=== PATIENT | female | born 1960 | race Caucasian/White ===

== ENCOUNTER 2017-04-04 07:39 | Outpatient (CLI) | payer OTHER | END 2017-04-04 07:40 | disposition home or self-care (01) | LOC: BICMAMMO 07:39 | PROVIDERS: ATTEND Specialist | DX: Z12.31 Encounter for screening mammogram for malignant neoplasm of breast (principal); Z13.820 Encounter for screening for osteoporosis | CPT/HCPCS: 77067; 77080; G0202 ==

== ENCOUNTER 2018-04-08 09:38 | Outpatient (CLI) | payer OTHER | END 2018-04-08 09:39 | disposition home or self-care (01) | LOC: BICMAMMO 09:38 | PROVIDERS: ATTEND Specialist | DX: Z12.31 Encounter for screening mammogram for malignant neoplasm of breast (principal); Z80.3 Family history of malignant neoplasm of breast | CPT/HCPCS: 77063; 77067 ==

== ENCOUNTER 2018-08-01 08:56 | Outpatient (CLI) | payer OTHER ==
--- NOTE | 2018-08-01 09:51 | ULT ---
RIGHT UPPER QUADRANT ULTRASOUND: Date: 08/01/18 HISTORY: Abdominal pain. FINDINGS: There is some minimal diffuse increased liver echogenicity, possibly representing some fatty change. The gallbladder is borderline distended with numerous echogenic foci within the gallbladder, casting prominent shadows, as well as some gallbladder wall thickening. Common bile duct 0.5 cm. The patient was tender over the gallbladder, but no discrete positive Churchill's sign. Visualized pancreas and righ t kidney are unremarkable. IMPRESSION: Multiple cholelithiasis within a mildly distended gallbladder with gallbladder wall thickening and mi nimal gallbladder wall edematous changes. No common duct dilatation. Slight coarse liver echotexture. POS: OFF
== END 2018-08-01 08:57 | disposition home or self-care (01) ==
LOC: ULT 08:56
PROVIDERS: ATTEND Physician Assistant Medical
DX: R10.9 Unspecified abdominal pain (principal); R11.2 Nausea with vomiting, unspecified; K80.20 Calculus of gallbladder without cholecystitis without obstruction; K82.8 Other specified diseases of gallbladder
CPT/HCPCS: 76705

== ENCOUNTER 2018-08-06 16:11 | Outpatient (CLI) | payer OTHER ==
[2018-08-06 17:05] LABS: #Basophils 0.1 thou/uL (0.0-0.2); #Eosinphils 0.2 thou/uL (0.0-0.7); #Lymphocytes 3.7 thou/uL (1.20-3.40); #Monocytes 0.7 thou/uL (0.11-0.59); #Neutrophils 4.8 thou/uL (1.40-6.50); %Basophils 0.9 % (0.0-1.0); %Eosinophils 2.3 % (0.0-10.0); %Lymphocytes 38.7 % (21.0-51.0); %Monocytes 6.9 % (0.0-10.0); %Neutrophils 51.2 % (42.0-75.0); Hemoglobin 13.8 g/dL (12.0-16.0); Mean Corpuscular HGB CONC 33.1 g/dL (32.0-36.0); Mean Corpuscular Hemoglobin 29.9 pg (27.0-31.0); Mean Corpuscular Volume 90.4 fL (78.0-98.0); Mean Platelet Volume 7.8 fL (7.4-10.4); Platelet Count 342 thou/uL (130-400); RBC Distribution Width 12.4 % (11.5-14.5); Red Blood Cell (RBC) Count 4.62 mill/uL (4.20-5.40); White Blood Cell (WBC) Count 9.4 thou/uL (4.8-10.8)
[2018-08-06 17:27] LABS: ALT (SGPT) 23 U/L (8-55); AST (SGOT) 16 U/L (5-34); Albumin 4.3 g/dL (3.5-5.0); Alkaline Phosphatase 79 U/L (40-150); Anion Gap 15 mmol/L (10-20); BUN (Urea Nitrogen) 19 mg/dL (9.8-20.1); Bilirubin, Direct 0.1 mg/dL (0.1-0.3); Bilirubin, Total 0.4 mg/dL (0.2-1.2); Calc. Creatinine Clearance 0 mL/min (70-130); Calcium 10.3 mg/dL (7.8-10.44); Carbon Dioxide 26 mmol/L (22-29); Chloride 104 mmol/L (98-107); Estimated GFR-MDRD 66; Glucose 123 mg/dL (70-105); Potassium 4.6 mmol/L (3.5-5.1); Protein, Total 7.5 g/dL (6.0-8.3); Sodium 140 mmol/L (136-145)
== END 2018-08-06 16:12 | disposition home or self-care (01) ==
LOC: LABBT 16:11
PROVIDERS: ATTEND Surgery
DX: Z01.812 Encounter for preprocedural laboratory examination (principal); K80.20 Calculus of gallbladder without cholecystitis without obstruction
CPT/HCPCS: 80048; 80076; 85025; 93005; 93010

== ENCOUNTER 2018-08-12 11:13 | Day surgery (SDC) | payer OTHER ==
[2018-08-06 17:01] VITALS: BMI 27.1
[2018-08-12] MEDS ORDERED: Glycopyrrolate 0.2 MG/ML 5 ML SYRINGE ONE (11:25)
[2018-08-12] MEDS ORDERED: PROPOFOL 200 MG/20 ML VIAL ONE (11:25)
[2018-08-12] MEDS ORDERED: Rocuronium Bromide 10 MG/ML (10ML VIAL) ONE (11:25)
[2018-08-12] MEDS ORDERED: Ondansetron PF 4 MG/2 ML Vial ONE (11:25)
[2018-08-12] MEDS ORDERED: Lidocaine 1% PF 5 ML VIAL ONE (11:25)
[2018-08-12] MEDS ORDERED: Bupivacaine/Epinephrine 0.25% 30 ML VIAL ONE (13:27)
[2018-08-12] MEDS ORDERED: Fentanyl 250 MCG/5 ML VIAL ONE (13:33)
[2018-08-12] MEDS ORDERED: Promethazine HCl 25 MG/ML VIAL ONE (14:40)
[2018-08-12] MEDS ORDERED: Fentanyl 100 MCG/2 ML VIAL ONE (15:43)
--- NOTE | 2018-08-12 17:26 | OP ---
DATE OF PROCEDURE: 08/12/2018 PREOPERATIVE DIAGNOSIS: Symptomatic gallstones. POSTOPERATIVE DIAGNOSIS: Symptomatic gallstones. PROCEDURE PERFORMED: Laparoscopic cholecystectomy. ANESTHESIA: General. COMPLICATIONS: None. SPECIMEN: Gallbladder. FINDINGS: Chronic cholecystitis. PROCEDURE IN DETAIL: The patient was taken to the operating room and laid supine on the operating room table. After general anesthetic was obtained, the abdomen was prepped and draped in a sterile fashion. A curved incision was made below the umbilicus. Cautery was used to dissect down to the umbilical fascia. Umbilical fascia was incised and held up using a Dali. The abdominal cavity was entered using a Mandy clamp. Holding stitch of Vicryl was placed on each side of the fascia. Holder trocar was placed. High-flow pneumoperitoneum was obtained. An upper midline 5 mm port and 2 right upper quadrant 5 mm ports were placed under direct camera visualization. The gallbladder was retracted from the gallbladder fossa. The peritoneum of the gallbladder was opened anteriorly and posteriorly. The critical view triangle was seen showing only the cystic duct and cystic artery branching from medial to lateral. There were no other branching structures. Two clips were placed proximally on the cystic duct and one laterally. It was cut using laparoscopic scissors. The cystic artery was taken in the same way. Electrocautery was then used to dissect the gallbladder out of the gallbladder fossa. The gallbladder was placed in an Endo catch bag and brought out through the Holder. There was no bleeding or bile in the liver bed. The cystic duct stump and cystic artery stump were intact, without evidence of extravasation or bleeding. All port sites were infiltrated using local anesthesia. All ports were removed under camera visualization. Pneumoperitoneum was let down. The Vicryl was used to close the fascial defect below the umbilicus. All incisions were irrigated and closed using 4-0 Monocryl and Dermabond. The patient was en route to Recovery in stable condition. All instrument counts, needle counts and lap counts were correct. Job ID: [id number]
== END 2018-08-12 16:50 | disposition home or self-care (01) ==
LOC: SDC 11:13
PROVIDERS: ATTEND Surgery
PROC: 0FT44ZZ Resection of Gallbladder, Percutaneous Endoscopic Approach (ICD-10-PCS; principal; 2018-08-12)
DX: K80.10 Calculus of gallbladder with chronic cholecystitis without obstruction (principal); Z79.84 Long term (current) use of oral hypoglycemic drugs; Z79.899 Other long term (current) drug therapy
CPT/HCPCS: 88304; J0690; J2001; J2405; J2550; J2704; J3010

== ENCOUNTER 2019-04-10 09:31 | Outpatient (CLI) | payer OTHER ==
--- NOTE | 2019-04-10 10:09 | MMO ---
Bilateral MAMMO Bilat Screen [facility]. CLINICAL HISTORY: Patient is 59 years old and is seen for screening. The patient has the following family history of breast cancer: maternal grandmother. The patient has no personal history of cancer. The patient has a history of right Excisional Biopsy - benign. VIEWS: The views performed were: bilateral craniocaudal with tomosynthesis and bilateral mediolateral oblique with tomosynthesis. FILMS COMPARED: The present examination has been compared to prior imaging studies performed at [facility] on 04/04/2017 and 04/08/2018, and at [facility] on 10/26/2014 and 11/25/2015. This study has been interpreted with the assistance of computer-aided detection. MAMMOGRAM FINDINGS: There are scattered fibroglandular densities. There are no suspicious masses, suspicious calcifications, or new areas of architectural distortion. IMPRESSION: THERE IS NO MAMMOGRAPHIC EVIDENCE OF MALIGNANCY. A ROUTINE FOLLOW-UP MAMMOGRAM IN 1 YEAR IS RECOMMENDED. THE RESULTS OF THIS EXAM WERE SENT TO THE PATIENT. ACR BI-RADS Category 1 - Negative MAMMOGRAPHY NOTE: 1. A negative mammogram report should not delay a biopsy if a dominant of clinically suspicious mass is present. 2. Approximately 10% to 15% of breast cancers are not detected by mammography. 3. Adenosis and dense breasts may obscure an underlying neoplasm. Reported by: JUSTIN BROWN MD Electonically Signed: [id number]
== END 2019-04-10 09:32 | disposition home or self-care (01) ==
LOC: BICMAMMO 09:31
PROVIDERS: ATTEND Specialist
DX: Z12.31 Encounter for screening mammogram for malignant neoplasm of breast (principal); Z80.3 Family history of malignant neoplasm of breast
CPT/HCPCS: 77063; 77067

== ENCOUNTER 2020-04-12 10:00 | Outpatient (CLI) | payer OTHER ==
--- NOTE | 2020-04-12 10:52 | MMO ---
Bilateral MAMMO Bilat Screen [facility]. CLINICAL HISTORY: Patient is 60 years old and is seen for screening. The patient has the following family history of breast cancer: maternal grandmother. The patient has no personal history of cancer. The patient has a history of right Excisional Biopsy - benign. VIEWS: The views performed were: bilateral craniocaudal with tomosynthesis and bilateral mediolateral oblique with tomosynthesis. FILMS COMPARED: The present examination has been compared to prior imaging studies performed at [facility] on 04/04/2017, 04/08/2018 and 04/10/2019, and at [facility] on 11/25/2015. This study has been interpreted with the assistance of computer-aided detection. MAMMOGRAM FINDINGS: There are scattered fibroglandular densities. There are no suspicious masses, suspicious calcifications, or new areas of architectural distortion. IMPRESSION: THERE IS NO MAMMOGRAPHIC EVIDENCE OF MALIGNANCY. A ROUTINE FOLLOW-UP MAMMOGRAM IN 1 YEAR IS RECOMMENDED. THE RESULTS OF THIS EXAM WERE SENT TO THE PATIENT. ACR BI-RADS Category 1 - Negative MAMMOGRAPHY NOTE: 1. A negative mammogram report should not delay a biopsy if a dominant of clinically suspicious mass is present. 2. Approximately 10% to 15% of breast cancers are not detected by mammography. 3. Adenosis and dense breasts may obscure an underlying neoplasm. Reported by: MIGDALIA PRITCHARD MD Electonically Signed: [id number]
== END 2020-04-12 10:01 | disposition home or self-care (01) ==
LOC: BICMAMMO 10:00
PROVIDERS: ATTEND Specialist
DX: Z12.31 Encounter for screening mammogram for malignant neoplasm of breast (principal); Z80.3 Family history of malignant neoplasm of breast; Z91.89 Other specified personal risk factors, not elsewhere classified
CPT/HCPCS: 77063; 77067

== ENCOUNTER 2021-04-14 09:48 | Outpatient (CLI) | payer BC | END 2021-04-14 09:49 | disposition home or self-care (01) | LOC: BICMAMMO 09:48 | PROVIDERS: ATTEND Specialist | DX: Z12.31 Encounter for screening mammogram for malignant neoplasm of breast (principal); Z80.3 Family history of malignant neoplasm of breast; Z91.89 Other specified personal risk factors, not elsewhere classified | CPT/HCPCS: 77063; 77067 ==

== ENCOUNTER 2021-06-07 14:20 | Outpatient (CLI) | payer BC | END 2021-06-07 14:21 | disposition home or self-care (01) | LOC: BICULT 14:20 | PROVIDERS: ATTEND Urology | DX: N30.90 Cystitis, unspecified without hematuria (principal) | CPT/HCPCS: 76770 ==

== ENCOUNTER 2022-03-31 09:01 | Outpatient (CLI) | payer BC | END 2022-03-31 09:02 | disposition home or self-care (01) | LOC: BICMAMMO 09:01 | PROVIDERS: ATTEND Specialist | DX: N64.53 Retraction of nipple (principal); N63.20 Unspecified lump in the left breast, unspecified quadrant | CPT/HCPCS: 77066; G0279 ==

== ENCOUNTER 2023-02-08 09:19 | Outpatient (CLI) | payer BC | END 2023-02-08 09:20 | disposition home or self-care (01) | LOC: BICMAMMO 09:19 | PROVIDERS: ATTEND Obstetrics & Gynecology | DX: N63.21 Unspecified lump in the left breast, upper outer quadrant (principal) | CPT/HCPCS: 77066; G0279 ==

== ENCOUNTER → 2023-02-12 | Day surgery (SDC) | payer BC | LOC: BICULT 07:21 | PROVIDERS: ATTEND Obstetrics & Gynecology | PROC: 07B60ZX Excision of Left Axillary Lymphatic, Open Approach, Diagnostic (ICD-10-PCS; principal; 2023-02-12) | PROC: 0H9U0ZX Drainage of Left Breast, Open Approach, Diagnostic (ICD-10-PCS; principal; 2023-02-12) | DX: C50.212 Malignant neoplasm of upper-inner quadrant of left female breast (principal); C50.912 Malignant neoplasm of unspecified site of left female breast; Z17.1 Estrogen receptor negative status [ER-] | CPT/HCPCS: 19083; 38505; 88305; 88341; 88342; 88360 ==

== ENCOUNTER 2023-02-27 08:00 | Outpatient (CLI) | payer MEDICARE | END 2023-02-27 08:01 | LOC: PET 08:00 | PROVIDERS: ATTEND Internal Medicine Hematology & Oncology | DX: C50.812 Malignant neoplasm of overlapping sites of left female breast (principal); C77.9 Secondary and unspecified malignant neoplasm of lymph node, unspecified; N63.20 Unspecified lump in the left breast, unspecified quadrant; R59.0 Localized enlarged lymph nodes | CPT/HCPCS: 78815; A9552 ==

== ENCOUNTER 2023-03-08 09:21 | Outpatient (CLI) | payer MEDICARE | END 2023-03-08 09:22 | disposition home or self-care (01) | LOC: BICMRI 09:21 | PROVIDERS: ATTEND Surgery | DX: Z08 Encounter for follow-up examination after completed treatment for malignant neoplasm (principal); Z85.3 Personal history of malignant neoplasm of breast | CPT/HCPCS: A9577; C8908 ==

== ENCOUNTER 2023-03-26 12:09 | Outpatient (CLI) | payer MEDICARE ==
[2023-03-26 13:22] LABS: #Eosinphils 0.1 10x3/uL (0.0-0.5); #Monocytes 0.5 10x3/uL (0.0-1.1); #Neutrophils 3.9 10x3/uL (1.5-8.4); %Basophils 0.4 % (0.0-2.0); %Eosinophils 1.7 % (0.0-6.0); %Lymphocytes 39.8 % (18.0-47.0); Hematocrit 41.7 % (34.9-44.5); Hemoglobin 13.8 g/dL (12.0-15.5); Mean Corpuscular HGB CONC 33.1 g/dL (32.0-36.0); Mean Corpuscular Hemoglobin 30.1 pg (27.0-33.0); Mean Platelet Volume 10.1 fl (7.4-10.4); Platelet Count 287 10x3/uL (150-450); RBC Distribution Width 13.8 % (11.5-14.5); Red Blood Cell (RBC) Count 4.58 10x6/uL (3.90-5.03); White Blood Cell (WBC) Count 7.7 10x3/uL (3.5-10.5)
[2023-03-26 13:45] LABS: Anion Gap 13 mmol/L (10-20); BUN (Urea Nitrogen) 12 mg/dL (9.8-20.1); Calc. Creatinine Clearance 0 mL/min (70-130); Calcium 9.9 mg/dL (7.8-10.44); Carbon Dioxide 26 mmol/L (23-31); Chloride 103 mmol/L (98-107); Estimated GFR 77; Glucose 109 mg/dL (80-115); Sodium 138 mmol/L (136-145)
== END 2023-03-26 12:10 | disposition home or self-care (01) ==
LOC: LABBT 12:09
PROVIDERS: ATTEND Surgery
DX: Z01.818 Encounter for other preprocedural examination (principal); C50.912 Malignant neoplasm of unspecified site of left female breast
CPT/HCPCS: 80048; 85025; 93005; 93010

== ENCOUNTER 2023-03-30 09:53 | Day surgery (SDC) | payer MEDICARE ==
[2023-03-26 12:49] VITALS: BMI 25.4
[2023-03-30] MEDS ORDERED: EPINEPHrine 1 MG/ML VIAL ONE (11:38)
[2023-03-30] MEDS ORDERED: Bupivacaine 0.25% HCL 30 ML VIAL ONE (11:38)
[2023-03-30] MEDS ORDERED: Methylene Blue 50 MG/10 ML AMPUL ONE (11:38)
[2023-03-30] MEDS ORDERED: Sodium Chloride 0.9% 100 ML ONE (12:06)
[2023-03-30] MEDS ORDERED: CEFAZOLIN 2 GM VIAL ONE (12:06)
[2023-03-30] MEDS ORDERED: Dexamethasone 20 MG/5 ML VIAL ONE (12:12)
[2023-03-30] MEDS ORDERED: PROPOFOL 200 MG/20 ML VIAL ONE (12:12)
[2023-03-30] MEDS ORDERED: Lidocaine 1% PF 5 ML VIAL ONE ×2 (12:12→12:15)
[2023-03-30] MEDS ORDERED: Ondansetron PF 4 MG/2 ML Vial ONE ×2 (12:12→12:48)
[2023-03-30] MEDS ORDERED: Labetalol HCl 100 MG/20 ML VIAL ONE ×2 (12:12→13:47)
[2023-03-30] MEDS ORDERED: Ketorolac Tromethamine 30 MG/ML VIAL ONE (12:12)
[2023-03-30] MEDS ORDERED: PROPOFOL 20 ML ONE (12:13)
[2023-03-30] MEDS ORDERED: Fentanyl 250 MCG/5 ML VIAL ONE (12:14)
[2023-03-30] MEDS ORDERED: Dexamethasone 4 mg/ml Vial ONE (12:48)
[2023-03-30] MEDS ORDERED: fentaNYL 50 mcg/mL 1 mL Vial ONE (14:26)
[2023-03-30] MEDS ORDERED: HYDROcodone/Acetaminophen 5/325 mg Tablet ONE (16:48)
== END 2023-03-30 17:52 | disposition home or self-care (01) ==
LOC: SDC 09:53
PROVIDERS: ATTEND Surgery
PROC: 0HTV0ZZ Resection of Bilateral Breast, Open Approach (ICD-10-PCS; principal; 2023-03-30)
DX: C50.212 Malignant neoplasm of upper-inner quadrant of left female breast (principal); E11.9 Type 2 diabetes mellitus without complications; D05.02 Lobular carcinoma in situ of left breast; Z79.85 Long-term (current) use of injectable non-insulin antidiabetic drugs; Z79.899 Other long term (current) drug therapy
CPT/HCPCS: 19303; 38745; J3010; Q9968; 88307; 88309; J0171; J1100; J1885; J2405; J2704; J3490; S0020

== ENCOUNTER 2023-04-25 08:33 | Day surgery (SDC) | payer OTHER ==
[2023-04-20 11:11] VITALS: BMI 25.7
[2023-04-25 10:27] LABS: #Eosinphils 0.1 thou/uL (0.0-0.7); #Monocytes 0.6 thou/uL (0.11-0.59); %Basophils 0.3 % (0.0-1.0); %Eosinophils 2.2 % (0.0-10.0); %Monocytes 9.3 % (0.0-10.0); Hematocrit 39.8 % (36.0-47.0); Hemoglobin 13.2 g/dL (12.0-16.0); Mean Corpuscular HGB CONC 33.2 g/dL (32.0-36.0); Mean Corpuscular Hemoglobin 30.5 pg (27.0-31.0); Mean Corpuscular Volume 91.9 fl (78.0-98.0); Mean Platelet Volume 9.7 fL (7.4-10.4); Platelet Count 273 10x3/uL (130-400); RBC Distribution Width 13.8 % (11.5-14.5); Red Blood Cell (RBC) Count 4.33 mill/uL (4.20-5.40); White Blood Cell (WBC) Count 6.5 10x3/uL (4.8-10.8)
[2023-04-25] MEDS ORDERED: PROPOFOL 40 ML ONE (10:43)
[2023-04-25 10:52] LABS: Anion Gap 12 mmol/L (10-20); BUN (Urea Nitrogen) 11 mg/dL (9.8-20.1); Calc. Creatinine Clearance 73 mL/min (70-130); Calcium 9.6 mg/dL (7.8-10.44); Carbon Dioxide 25 mmol/L (23-31); Chloride 108 mmol/L (98-107); Estimated GFR 76; Glucose 98 mg/dL (80-115); Potassium 4.2 mmol/L (3.5-5.1); Sodium 141 mmol/L (136-145)
[2023-04-25] MEDS ORDERED: Lidocaine 2% PF 5 ML VIAL ONE (11:24)
[2023-04-25] MEDS ORDERED: EPINEPHrine 1 MG/ML VIAL ONE (11:24)
[2023-04-25] MEDS ORDERED: Bupivacaine 0.25% HCL 30 ML VIAL ONE (11:24)
[2023-04-25] MEDS ORDERED: Sodium Chloride 0.9% 100 ML ONE (11:31)
[2023-04-25] MEDS ORDERED: CEFAZOLIN 2 GM VIAL ONE (11:31)
[2023-04-25] MEDS ORDERED: fentaNYL PF 100 MCG/2 ML SYRINGE ONE (11:41)
[2023-04-25] MEDS ORDERED: Lidocaine 1% PF 5 ML VIAL ONE (11:42)
== END 2023-04-25 13:54 | disposition home or self-care (01) ==
LOC: SDC 08:33
PROVIDERS: ATTEND Surgery
PROC: 05HM33Z Insertion of Infusion Device into Right Internal Jugular Vein, Percutaneous Approach (ICD-10-PCS; principal; 2023-04-25)
DX: C50.212 Malignant neoplasm of upper-inner quadrant of left female breast (principal); E11.9 Type 2 diabetes mellitus without complications; Z79.899 Other long term (current) drug therapy; Z79.84 Long term (current) use of oral hypoglycemic drugs; Z98.890 Other specified postprocedural states; Z90.710 Acquired absence of both cervix and uterus
CPT/HCPCS: 71045; 80048; 85025; C1788; J0171; J1642; J2001; J2704; J3490; S0020

== ENCOUNTER 2023-06-12 08:21 | Outpatient (CLI) | payer MEDICARE | END 2023-06-12 08:22 | disposition home or self-care (01) | LOC: BICMAMMO 08:21 | PROVIDERS: ATTEND Specialist | DX: Z13.820 Encounter for screening for osteoporosis (principal); M85.88 Other specified disorders of bone density and structure, other site | CPT/HCPCS: 77080 ==

== ENCOUNTER 2025-02-03 08:07 | Outpatient (CLI) | payer MEDICARE ==
[2025-02-03] MEDS ORDERED: Iopamidol 370 76% 100 ML VIAL ONE (10:09)
== END 2025-02-03 08:08 | disposition home or self-care (01) ==
LOC: CT 08:07
PROVIDERS: ATTEND Internal Medicine Hematology & Oncology
DX: C50.812 Malignant neoplasm of overlapping sites of left female breast (principal); D70.8 Other neutropenia; T38.6X5A Adverse effect of antigonadotrophins, antiestrogens, antiandrogens, not elsewhere classified, initial encounter; Z90.13 Acquired absence of bilateral breasts and nipples
CPT/HCPCS: 71260; 74177; 78306; A9503; Q9967